=== PATIENT | female | born 1985 | race Caucasian/White ===

== ENCOUNTER 2017-02-24 16:11 | Emergency (ER) | payer OTHER ==
[~2017-02-24] VITALS: Ht 170.2 cm; Wt 61.2 kg
[2017-02-24 16:48] LABS: ABSOLUTE NEUTROPHILS 6.4 thou/uL (1.4-8.2); BASOPHILS 0.8 % (0.0-2.0); EOSINOPHILS 3.8 % (0.0-3.0); HEMATOCRIT 41.2 % (37.0-47.0); HEMOGLOBIN 13.6 gm/dL (12.0-15.0); LYMPHOCYTES 18.3 % (24.0-44.0); MCV 90.9 fL (80.0-100.0); MONOCYTES 7.2 % (1.0-8.0); PLATELET COUNT 211 thou/uL (150-400); POLYS 69.9 % (36.0-66.0); RBC 4.53 mil/uL (4.20-5.00); RDW 13.7 % (10.5-14.5); WBC 9.1 thou/uL (4.0-11.0)
[2017-02-24 16:50] LABS: MANUAL DIFF NO
[2017-02-24 17:04] LABS: CREATININE 1.1 mg/dL (0.6-1.0); POTASSIUM 3.8 mmol/L (3.5-5.1)
[2017-02-24 17:05] LABS: ALBUMIN 3.8 g/dL (3.4-5.0); CALCIUM 8.6 mg/dL (8.5-10.1); TOTAL BILIRUBIN 0.3 mg/dL (<0.1-1.0); TOTAL PROTEIN 7.4 g/dL (6.4-8.2)
[2017-02-24] MEDS ORDERED: PEPCID40 MG PO (20:00)
[2017-02-24] MEDS ORDERED: BENTYL 20 MG TA20 M1 PO (20:00)
[2017-02-24] MEDS ORDERED: ONDANSETRON HCL4 M2 PO (20:00)
[2017-02-24 20:46] VITALS: BP 108/74
== END 2017-02-24 20:47 | disposition home or self-care (01) ==
LOC: ER 16:11
PROVIDERS: Emergency Medicine
DX: R10.13 Epigastric pain (principal); F10.99 Alcohol use, unspecified with unspecified alcohol-induced disorder; Z88.1 Allergy status to other antibiotic agents